=== PATIENT | male | born 1965 | race Caucasian/White ===

== ENCOUNTER 2016-12-01 08:43 | Emergency (ER) | payer MEDICAID ==
[~2016-12-01] VITALS: Ht 188 cm; Wt 134.0 kg
[~2016-12-01 08:43] MED LIST: AMLO10TA2 PO; ASPI-515 PO; ATOR40TA78 PO; CLON0.1T PO; DOCU-30 PO; DOXA1TAB PO; HYDR50TA3 PO; IRBE300T40 PO; LABE300T PO; NIFE60TA2 PO; OLME40TA PO; OXYC5TAB3 PO; SPIR50TA PO
[2016-12-01] MEDS ORDERED: SODIUM CHLORIDE FLUSH 10ML SYR IVF ONE (09:30)
[2016-12-01] MEDS ORDERED: SODIUM CHLORIDE 0.9% 1,000ML IVBOLUS ONE (09:30)
[2016-12-01 10:00] LABS: BLOOD UREA NITROGEN 28 mg/dL (7-18)
[2016-12-01 10:05] LABS: ASPARTATE AMINO TRANSFERASE 21 U/L (15-37)
[2016-12-01 10:07] LABS: IS PT STATUS REG ER OR PRE ER? YES
[2016-12-01] MEDS ORDERED: HYDR25TA6 PO (10:19)
[2016-12-01] MEDS ORDERED: POTASSIUM CHLORIDE 20 MEQ TAB.ER.PRT PO ONE (11:00)
[2016-12-01] MEDS ORDERED: POTASSIUM CHLORIDE 20 MEQ TAB.ER.PRT ONE (11:12)
[2016-12-01] MEDS ORDERED: OMNIPAQUE 350 MG/ML, 150 ML BOTTLE ONE (11:37)
[2016-12-01 14:28] VITALS: BP 151/72
== END 2016-12-01 14:31 | disposition home or self-care (01) ==
LOC: ED 09:07
DX: R55 Syncope and collapse (principal); I10 Essential (primary) hypertension; J45.909 Unspecified asthma, uncomplicated
CPT/HCPCS: 36415; 71010; 71275; 80053; 83605; 84484; 85025; 85379; 93005; 96360; 96361; 99285; J7030; Q9967